=== PATIENT | female | born 1975 | race Hispanic/Latino ===

== ENCOUNTER → 2019-09-07 | Outpatient (CLI) | payer OTHER | END | disposition home or self-care (01) | LOC: OIH 13:08 | PROVIDERS: ATTEND Internal Medicine | DX: M47.814 Spondylosis without myelopathy or radiculopathy, thoracic region (principal); R05 Cough | CPT/HCPCS: 71046 ==

== ENCOUNTER → 2019-12-18 | Outpatient (CLI) | payer OTHER | END | disposition home or self-care (01) | LOC: OIH 08:22 | PROVIDERS: ATTEND Internal Medicine | DX: J45.909 Unspecified asthma, uncomplicated (principal) | CPT/HCPCS: 71046 ==